=== PATIENT | female | born 1945 | race Caucasian/White ===

== ENCOUNTER 2022-08-20 05:04 | Inpatient (IN) | payer MEDICARE ==
[2022-08-20] MEDS ORDERED: Ketorolac Tromethamine 30 MG/ML VIAL ONE (05:14)
[2022-08-20] MEDS ORDERED: Morphine 4 MG/ML VIAL ONE (05:14)
[2022-08-20] MEDS ORDERED: Ondansetron PF 4 MG/2 ML Vial ONE (05:21)
[2022-08-20 05:46] LABS: #Eosinphils 0.1 thou/uL (0.0-0.7); #Lymphocytes 1.8 thou/uL (1.20-3.40); #Monocytes 1.5 thou/uL (0.11-0.59); #Neutrophils 10.5 thou/uL (1.40-6.50); %Basophils 0.2 % (0.0-1.0); %Eosinophils 0.8 % (0.0-10.0); %Lymphocytes 12.7 % (21.0-51.0); %Monocytes 10.8 % (0.0-10.0); %Neutrophils 75.5 % (42.0-75.0); Hemoglobin 7.9 g/dL (12.0-16.0); Mean Corpuscular HGB CONC 32.5 g/dL (32.0-36.0); Mean Corpuscular Hemoglobin 27.4 pg (27.0-31.0); Mean Corpuscular Volume 84.3 fl (78.0-98.0); Mean Platelet Volume 6.5 fL (7.4-10.4); Platelet Count 283 10x3/uL (130-400); RBC Distribution Width 15.2 % (11.5-14.5); Red Blood Cell (RBC) Count 2.87 mill/uL (4.20-5.40); White Blood Cell (WBC) Count 13.9 10x3/uL (4.8-10.8)
[2022-08-20 06:08] LABS: ALT (SGPT) 12 U/L (8-55); AST (SGOT) 19 U/L (5-34); Albumin 3.7 g/dL (3.4-4.8); Alkaline Phosphatase 54 U/L (40-110); Anion Gap 16 mmol/L (10-20); BUN (Urea Nitrogen) 15 mg/dL (9.8-20.1); Bilirubin, Total 0.5 mg/dL (0.2-1.2); Calc. Creatinine Clearance 0 mL/min (70-130); Calcium 8.4 mg/dL (7.8-10.44); Carbon Dioxide 17 mmol/L (23-31); Chloride 97 mmol/L (98-107); Estimated GFR 62; Globulin 2.7 g/dL (2.4-3.5); Glucose 146 mg/dL (83-110); Potassium 3.6 mmol/L (3.5-5.1); Protein, Total 6.4 g/dL (5.8-8.1); Sodium 126 mmol/L (136-145)
[2022-08-20 06:25] LABS: Bilirubin Negative (Negative); Blood, Urine Negative (Negative); Clarity Clear (Clear); Glucose, Urine (Dipstick) Normal (Negative); Ketone, Urine Negative (Negative); Leukocyte Negative Leu/uL (Negative); Nitrite Negative (Negative); Protein, Urine (Dipstick) Negative (Neg-Trace); Specific Gravity, Urine 1.018 (1.002-1.036); Urobilinogen Normal mg/dL (Less than 2); pH, Urine 5.5 (5.0-9.0)
[2022-08-20] MEDS ORDERED: Acetaminophen 500 MG TAB ONE (07:50)
[2022-08-20 09:44] LABS: SARS-CoV-2 NAA Rapid Test DETECTED (NotDetected)
[2022-08-20] MEDS ORDERED: HumaLOG 300 UNITS/3 ML VIAL SC PRN ×2 (10:33)
[2022-08-20] MEDS ORDERED: Ondansetron ODT 4 MG TAB PO PRN (10:33)
[2022-08-20] MEDS ORDERED: Dextrose 50% Abboject 50 ML SYRINGE SLOW IVP PRN (10:33)
[2022-08-20] MEDS ORDERED: Senokot S 8.6-50 MG TAB PO PRN (10:33)
[2022-08-20] MEDS ORDERED: Bisacodyl 10 MG SUPP PR PRN (10:33)
[2022-08-20] MEDS ORDERED: Bisacodyl 5 MG TAB PO PRN (10:33)
[2022-08-20] MEDS ORDERED: Dextrose 5% in Water 1,000 ML IV PRN (10:33)
[2022-08-20] MEDS ORDERED: Electrolyte Replacement Protocol 1 EACH FS SCH (10:45)
[2022-08-20] MEDS ORDERED: Folic Acid 1 MG TAB PO SCH (11:00)
[2022-08-20] MEDS ORDERED: Multivit, Therapeutic 1 TAB PO SCH (11:00)
[2022-08-20 11:17] LABS: Hemoglobin A1c 6.6 % (4.0-6.0)
[2022-08-20 11:18] LABS: Sodium 127 mmol/L (136-145)
[2022-08-20 11:30] LABS: Iron Binding Capacity, Total 309 mcg/dL (265-497)
[2022-08-20 11:31] LABS: Iron 37 ug/dL (50-170)
[2022-08-20 11:35] LABS: Troponin I Less than 0.010 ng/mL (< 0.028)
[2022-08-20] MEDS: Thiamine HCl 200 MG/2 ML VIAL SLOW IVP SCH ×2 (13:01→17:54)
[2022-08-20 13:30] LABS: Syphilis Antibody Nonreactive (Nonreactive); Syphilis Antibody Index 0.02 S/CO (<1.00 Non-Reactive)
[2022-08-20 13:41] VITALS: BMI 33.3
[2022-08-20] MEDS: Acetaminophen 325 MG TAB PO SCH ×2 (15:58→21:07)
[2022-08-20 17:54] LABS: Sodium 127 mmol/L (136-145)
[2022-08-20 18:33] LABS: Amphetamine Not Detected (NotDetected); Barbiturates Screen Not Detected (NotDetected); Benzodiazepine Screen Not Detected (NotDetected); Cocaine Metabolite Screen Not Detected (NotDetected); Methadone Not Detected (NotDetected); Methamphetamine Not Detected (NotDetected); Opiate Screen Detected (NotDetected); Oxycodone Screen Not Detected (NotDetected); Phencyclidine (PCP) Not Detected (NotDetected); THC/Cannabinoid Screen Not Detected (NotDetected); Tricyclic Screen Not Detected (NotDetected)
[2022-08-20] MEDS: Famotidine 20 MG TAB PO SCH (21:04)
[2022-08-20] MEDS: HYDROcodone/Acetaminophen 7.5/325 mg Tablet PO PRN (21:06)
[2022-08-20] MEDS: Acetaminophen 500 MG TAB PO SCH (21:29)
[2022-08-20 23:41] LABS: Sodium 128 mmol/L (136-145)
[2022-08-21] MEDS: Thiamine HCl 200 MG/2 ML VIAL SLOW IVP SCH ×3 (03:32→18:47)
[2022-08-21 05:18] LABS: Anion Gap 12 mmol/L (10-20); BUN (Urea Nitrogen) 20 mg/dL (9.8-20.1); Calc. Creatinine Clearance 71 mL/min (70-130); Calcium 8.4 mg/dL (7.8-10.44); Carbon Dioxide 23 mmol/L (23-31); Chloride 101 mmol/L (98-107); Estimated GFR 57; Glucose 106 mg/dL (83-110); Potassium 3.8 mmol/L (3.5-5.1); Sodium 132 mmol/L (136-145)
[2022-08-21 05:23] LABS: #Eosinphils 0.1 thou/uL (0.0-0.7); #Lymphocytes 1.5 thou/uL (1.20-3.40); #Monocytes 0.8 thou/uL (0.11-0.59); #Neutrophils 3.7 thou/uL (1.40-6.50); %Basophils 0.1 % (0.0-1.0); %Lymphocytes 23.9 % (21.0-51.0); %Monocytes 13.4 % (0.0-10.0); %Neutrophils 60.6 % (42.0-75.0); Hemoglobin 6.2 g/dL (12.0-16.0); Mean Corpuscular HGB CONC 34.3 g/dL (32.0-36.0); Mean Corpuscular Hemoglobin 28.7 pg (27.0-31.0); Mean Corpuscular Volume 83.5 fl (78.0-98.0); Mean Platelet Volume 7.5 fL (7.4-10.4); Platelet Count 165 10x3/uL (130-400); RBC Distribution Width 15.3 % (11.5-14.5); Red Blood Cell (RBC) Count 2.17 mill/uL (4.20-5.40); White Blood Cell (WBC) Count 6.1 10x3/uL (4.8-10.8)
[2022-08-21 06:38] LABS: Hemoglobin 6.4 g/dL (12.0-16.0)
[2022-08-21] MEDS ORDERED: Iopamidol-370 76% 500 ML 1 ML ONE (09:11)
[2022-08-21] MEDS: Acetaminophen 500 MG TAB PO SCH ×3 (09:44→21:48)
[2022-08-21] MEDS: Multivit, Therapeutic 1 TAB PO SCH (09:45)
[2022-08-21] MEDS: Folic Acid 1 MG TAB PO SCH (09:46)
[2022-08-21] MEDS: Famotidine 20 MG TAB PO SCH ×2 (09:46→21:47)
[2022-08-21 11:33] LABS: Glucose 124 mg/dL (83-110)
[2022-08-21] MEDS: Morphine 2 MG/ML VIAL SLOW IVP PRN ×3 (11:38→19:39)
[2022-08-21 16:30] LABS: Hemoglobin 8.1 g/dL (12.0-16.0)
[2022-08-21 16:58] LABS: Glucose 143 mg/dL (83-110)
[2022-08-21] MEDS: HYDROcodone/Acetaminophen 7.5/325 mg Tablet PO PRN (21:47)
[2022-08-22 00:18] LABS: Hemoglobin 7.7 g/dL (12.0-16.0)
[2022-08-22] MEDS: Thiamine HCl 200 MG/2 ML VIAL SLOW IVP SCH ×3 (03:19→21:58)
[2022-08-22] MEDS: Morphine 2 MG/ML VIAL SLOW IVP PRN ×4 (03:19→22:28)
[2022-08-22 05:14] LABS: Hemoglobin 8.6 g/dL (12.0-16.0); Mean Corpuscular HGB CONC 33.2 g/dL (32.0-36.0); Mean Corpuscular Hemoglobin 28.1 pg (27.0-31.0); Mean Corpuscular Volume 84.6 fl (78.0-98.0); Mean Platelet Volume 7.5 fL (7.4-10.4); Platelet Count 192 10x3/uL (130-400); RBC Distribution Width 15.6 % (11.5-14.5); Red Blood Cell (RBC) Count 3.05 mill/uL (4.20-5.40); White Blood Cell (WBC) Count 8.7 10x3/uL (4.8-10.8)
[2022-08-22 05:25] LABS: Anion Gap 14 mmol/L (10-20); BUN (Urea Nitrogen) 14 mg/dL (9.8-20.1); Calc. Creatinine Clearance 81 mL/min (70-130); Carbon Dioxide 22 mmol/L (23-31); Chloride 103 mmol/L (98-107); Estimated GFR 68; Glucose 114 mg/dL (83-110); Sodium 135 mmol/L (136-145)
[2022-08-22 05:48] LABS: Lymphocytes 14 % (21-51); MDiff Complete? YES; Monocytes 12 % (0-10); Neutrophil 74 % (42-75)
[2022-08-22] MEDS ORDERED: CEFAZOLIN 2 GM in Sodium Chloride 0.9% 100 ML IVPB SCH (07:30)
[2022-08-22] MEDS ORDERED: Sodium Chloride 0.9% 1,000 ML IV SCH (09:30)
[2022-08-22] MEDS: Acetaminophen 500 MG TAB PO SCH (09:53)
[2022-08-22] MEDS: Famotidine 20 MG TAB PO SCH ×3 (09:53→22:25)
[2022-08-22] MEDS: Folic Acid 1 MG TAB PO SCH (09:54)
[2022-08-22] MEDS: Multivit, Therapeutic 1 TAB PO SCH (09:55)
[2022-08-22] MEDS ORDERED: Acetaminophen/Codeine 30-300mg Tablet PO PRN (13:11)
[2022-08-22] MEDS ORDERED: HYDROcodone/Acetaminophen 5/325 mg Tablet PO PRN (13:13)
[2022-08-22 13:19] LABS: Glucose 148 mg/dL (83-110)
[2022-08-22] MEDS: Acetaminophen 325 MG TAB PO SCH ×3 (14:03→22:25)
[2022-08-22] MEDS ORDERED: Fentanyl 100 MCG/2 ML VIAL ONE ×2 (16:38→19:54)
[2022-08-22] MEDS ORDERED: fentaNYL PF 100 MCG/2 ML SYRINGE ONE ×2 (17:05→20:20)
[2022-08-22] MEDS ORDERED: Propofol 1,000 MG/100 ML VIAL IV ONE (17:05)
[2022-08-22] MEDS ORDERED: PHENYLEPHRINE-NS 100 MCG/ML 10 ML SYRINGE ONE (17:55)
[2022-08-22] MEDS ORDERED: Ondansetron PF 4 MG/2 ML Vial ONE ×3 (17:55→20:29)
[2022-08-22] MEDS ORDERED: Glycopyrrolate 0.2 MG/ML 5 ML SYRINGE ONE (17:55)
[2022-08-22] MEDS ORDERED: Rocuronium Bromide 10 MG/ML (10ML VIAL) ONE (17:55)
[2022-08-22] MEDS ORDERED: PROPOFOL 200 MG/20 ML VIAL ONE (17:55)
[2022-08-22] MEDS ORDERED: NEOSTIGMINE 3 MG/3 ML SYR 3 MG/3 ML SYRINGE ONE (17:55)
[2022-08-22] MEDS ORDERED: Lidocaine 1% PF 5 ML VIAL ONE (17:55)
[2022-08-22] MEDS ORDERED: Dexamethasone 20 MG/5 ML VIAL ONE (17:55)
[2022-08-22] MEDS: Ferrous Sulfate 325 MG TAB PO SCH (17:58)
[2022-08-22] MEDS ORDERED: Ondansetron HCl/PF 4 MG/2 ML Vial IVP PRN (19:54)
[2022-08-22] MEDS ORDERED: Promethazine HCl 25 MG/ML VIAL IM PRN (19:54)
[2022-08-22] MEDS: QUEtiapine 25 MG TAB PO SCH ×2 (21:59→22:24)
[2022-08-22] MEDS: Atorvastatin Calcium 40 MG TAB PO SCH ×2 (22:00→22:25)
[2022-08-22] MEDS: busPIRone HCl 10 MG TAB PO SCH ×2 (22:00→22:25)
[2022-08-22] MEDS: Senokot S 8.6-50 MG TAB PO SCH ×2 (22:00→22:24)
[2022-08-22] MEDS: Metoprolol Tartrate 25 MG TAB PO SCH ×2 (22:01→22:24)
[2022-08-22] MEDS: Gabapentin 300 MG CAP PO SCH ×2 (22:01→22:24)
[2022-08-22] MEDS: CEFAZOLIN 2 GM in Sodium Chloride 0.9% 100 ML IVPB SCH (22:02)
[2022-08-22] MEDS: Ascorbic Acid 500 mg Chewable Tablet PO SCH ×2 (22:02→22:23)
[2022-08-23] MEDS: Thiamine HCl 200 MG/2 ML VIAL SLOW IVP SCH ×2 (04:23→12:37)
[2022-08-23] MEDS: CEFAZOLIN 2 GM in Sodium Chloride 0.9% 100 ML IVPB SCH (05:58)
[2022-08-23 06:40] LABS: Anion Gap 14 mmol/L (10-20); BUN (Urea Nitrogen) 19 mg/dL (9.8-20.1); Calc. Creatinine Clearance 73 mL/min (70-130); Calcium 8.6 mg/dL (7.8-10.44); Carbon Dioxide 20 mmol/L (23-31); Chloride 106 mmol/L (98-107); Estimated GFR 60; Glucose 176 mg/dL (83-110); Magnesium 1.7 mg/dL (1.6-2.6); Potassium 4.5 mmol/L (3.5-5.1); Sodium 135 mmol/L (136-145)
[2022-08-23 06:43] LABS: Hemoglobin 7.3 g/dL (12.0-16.0); MDiff Complete? YES; Mean Corpuscular HGB CONC 32.4 g/dL (32.0-36.0); Mean Corpuscular Hemoglobin 28.3 pg (27.0-31.0); Mean Corpuscular Volume 87.4 fl (78.0-98.0); Mean Platelet Volume 7.3 fL (7.4-10.4); Platelet Count 207 10x3/uL (130-400); RBC Distribution Width 15.8 % (11.5-14.5); Red Blood Cell (RBC) Count 2.57 mill/uL (4.20-5.40); White Blood Cell (WBC) Count 11.2 10x3/uL (4.8-10.8)
[2022-08-23 06:44] LABS: Band 8 % (5-11); Hypochromia SLIGHT = 6-15 cells (100X) (0-5/hpf); Lymphocytes 13 % (21-51); Monocytes 14 % (0-10); Neutrophil 65 % (42-75); Platelet Morphology Comment Appears Adequate
[2022-08-23] MEDS ORDERED: Magnesium 2 GM/50 ML(in water) 2 GM in Premix Bag 1 BAG IVPB SCH (08:00)
[2022-08-23] MEDS: Ferrous Sulfate 325 MG TAB PO SCH ×3 (08:49→21:28)
[2022-08-23] MEDS: PARoxetine 20 MG TAB PO SCH (11:09)
[2022-08-23] MEDS: Ascorbic Acid 500 mg Chewable Tablet PO SCH ×2 (11:09→21:28)
[2022-08-23] MEDS: Amlodipine 10 MG TAB PO SCH (11:10)
[2022-08-23] MEDS: busPIRone HCl 10 MG TAB PO SCH ×2 (11:11→21:28)
[2022-08-23] MEDS: Senokot S 8.6-50 MG TAB PO SCH ×2 (11:12→21:27)
[2022-08-23] MEDS: Folic Acid 1 MG TAB PO SCH (11:12)
[2022-08-23] MEDS: Acetaminophen 325 MG TAB PO SCH ×3 (11:12→21:27)
[2022-08-23] MEDS: Metoprolol Tartrate 25 MG TAB PO SCH ×2 (11:12→21:28)
[2022-08-23] MEDS: HYDROcodone/Acetaminophen 7.5/325 mg Tablet PO PRN ×3 (11:13→21:28)
[2022-08-23] MEDS: Multivit, Therapeutic 1 TAB PO SCH (11:14)
[2022-08-23] MEDS: Polyethylene Glycol 3350 17 GM Packet PO SCH (11:14)
[2022-08-23] MEDS: Ibuprofen 200 MG TAB PO PRN (11:24)
[2022-08-23] MEDS: Gabapentin 300 MG CAP PO SCH ×2 (11:58→21:28)
[2022-08-23] MEDS: Atorvastatin Calcium 40 MG TAB PO SCH (21:27)
[2022-08-23] MEDS: Famotidine 20 MG TAB PO SCH (21:28)
[2022-08-23] MEDS: QUEtiapine 25 MG TAB PO SCH (21:28)
[2022-08-24 07:15] LABS: Glucose 154 mg/dL (83-110)
[2022-08-24 07:18] LABS: Anion Gap 13 mmol/L (10-20); BUN (Urea Nitrogen) 34 mg/dL (9.8-20.1); Calc. Creatinine Clearance 42 mL/min (70-130); Carbon Dioxide 21 mmol/L (23-31); Chloride 104 mmol/L (98-107); Estimated GFR 31; Glucose 155 mg/dL (83-110); Magnesium 2.6 mg/dL (1.6-2.6); Potassium 4.3 mmol/L (3.5-5.1); Sodium 134 mmol/L (136-145)
[2022-08-24 07:52] LABS: Hemoglobin 6.2 g/dL (12.0-16.0); Mean Corpuscular HGB CONC 32.6 g/dL (32.0-36.0); Mean Corpuscular Hemoglobin 28.5 pg (27.0-31.0); Mean Corpuscular Volume 87.3 fl (78.0-98.0); Mean Platelet Volume 7.9 fL (7.4-10.4); Platelet Count 235 10x3/uL (130-400); RBC Distribution Width 16.2 % (11.5-14.5); Red Blood Cell (RBC) Count 2.16 mill/uL (4.20-5.40); White Blood Cell (WBC) Count 9.6 10x3/uL (4.8-10.8)
[2022-08-24] MEDS: Ascorbic Acid 500 mg Chewable Tablet PO SCH ×2 (08:40→20:47)
[2022-08-24] MEDS: Famotidine 20 MG TAB PO SCH (08:40)
[2022-08-24] MEDS: Acetaminophen 325 MG TAB PO SCH ×3 (08:41→20:45)
[2022-08-24] MEDS: Multivit, Therapeutic 1 TAB PO SCH (08:41)
[2022-08-24] MEDS: Thiamine 100 MG TAB PO SCH (08:41)
[2022-08-24] MEDS: Gabapentin 300 MG CAP PO SCH ×2 (08:42→20:47)
[2022-08-24] MEDS: busPIRone HCl 10 MG TAB PO SCH ×2 (08:42→20:46)
[2022-08-24] MEDS: PARoxetine 20 MG TAB PO SCH (08:42)
[2022-08-24] MEDS: Ferrous Sulfate 325 MG TAB PO SCH ×2 (08:43→20:47)
[2022-08-24] MEDS: Folic Acid 1 MG TAB PO SCH (08:43)
[2022-08-24] MEDS: Metoprolol Tartrate 25 MG TAB PO SCH ×2 (08:43→20:47)
[2022-08-24] MEDS: Amlodipine 10 MG TAB PO SCH (08:43)
[2022-08-24] MEDS: Polyethylene Glycol 3350 17 GM Packet PO SCH (08:44)
[2022-08-24] MEDS: Senokot S 8.6-50 MG TAB PO SCH ×2 (08:44→20:47)
[2022-08-24 09:16] LABS: Anisocytosis SLIGHT = 6-15 cells (100X) (0-5/hpf); Eosinophils 2 % (0-10); Lymphocytes 14 % (21-51); MDiff Complete? YES; Monocytes 10 % (0-10); Neutrophil 74 % (42-75); Ovalocytes SLIGHT = 2-5 cells (100X) (0-1/hpf); Platelet Morphology Comment Appears Adequate; Polychromasia SLIGHT = 2-3 cells (100X) (0-2/hpf)
[2022-08-24] MEDS ORDERED: Iron Sucrose Complex 200 MG in Sodium Chloride 0.9% 100 ML IVPB SCH (12:30)
[2022-08-24] MEDS ORDERED: Iron, Sodium Ferric Gluconate 250 MG in Sodium Chloride 0.9% 250 ML 250 ML IVPB SCH ×2 (14:00→18:00)
[2022-08-24] MEDS: HYDROcodone/Acetaminophen 7.5/325 mg Tablet PO PRN ×2 (14:39→20:46)
[2022-08-24 17:31] LABS: Glucose 127 mg/dL (83-110)
[2022-08-24] MEDS: Sodium Chloride 0.9% 1,000 ML IV SCH (17:47)
[2022-08-24] MEDS: Atorvastatin Calcium 40 MG TAB PO SCH (20:47)
[2022-08-24] MEDS: QUEtiapine 25 MG TAB PO SCH (20:47)
[2022-08-24 22:58] LABS: Glucose 189 mg/dL (83-110)
[2022-08-25 08:08] LABS: #Eosinphils 0.2 thou/uL (0.0-0.7); #Lymphocytes 1.5 thou/uL (1.20-3.40); #Monocytes 1.4 thou/uL (0.11-0.59); #Neutrophils 6.7 thou/uL (1.40-6.50); %Basophils 0.5 % (0.0-1.0); %Eosinophils 2.4 % (0.0-10.0); %Lymphocytes 14.7 % (21.0-51.0); %Monocytes 14.3 % (0.0-10.0); %Neutrophils 68.2 % (42.0-75.0); Hemoglobin 7.2 g/dL (12.0-16.0); Mean Corpuscular HGB CONC 32.6 g/dL (32.0-36.0); Mean Corpuscular Hemoglobin 29.1 pg (27.0-31.0); Mean Corpuscular Volume 89.4 fl (78.0-98.0); Mean Platelet Volume 7.6 fL (7.4-10.4); Platelet Count 197 10x3/uL (130-400); RBC Distribution Width 16.4 % (11.5-14.5); Red Blood Cell (RBC) Count 2.46 mill/uL (4.20-5.40); White Blood Cell (WBC) Count 9.9 10x3/uL (4.8-10.8)
[2022-08-25 08:32] LABS: Anion Gap 14 mmol/L (10-20); BUN (Urea Nitrogen) 30 mg/dL (9.8-20.1); Calc. Creatinine Clearance 63 mL/min (70-130); Calcium 8.5 mg/dL (7.8-10.44); Carbon Dioxide 18 mmol/L (23-31); Chloride 105 mmol/L (98-107); Estimated GFR 50; Glucose 149 mg/dL (83-110); Magnesium 2.1 mg/dL (1.6-2.6); Potassium 4.2 mmol/L (3.5-5.1); Sodium 133 mmol/L (136-145)
[2022-08-25] MEDS: Gabapentin 300 MG CAP PO SCH ×2 (08:42→21:34)
[2022-08-25] MEDS: Senokot S 8.6-50 MG TAB PO SCH ×2 (08:42→21:37)
[2022-08-25] MEDS: Amlodipine 10 MG TAB PO SCH (08:43)
[2022-08-25] MEDS: Famotidine 20 MG TAB PO SCH (08:43)
[2022-08-25] MEDS: Metoprolol Tartrate 25 MG TAB PO SCH ×2 (08:43→21:35)
[2022-08-25] MEDS: Folic Acid 1 MG TAB PO SCH (08:43)
[2022-08-25] MEDS: Multivit, Therapeutic 1 TAB PO SCH (08:43)
[2022-08-25] MEDS: Ferrous Sulfate 325 MG TAB PO SCH ×2 (08:44→21:41)
[2022-08-25] MEDS: Acetaminophen 325 MG TAB PO SCH ×3 (08:44→21:36)
[2022-08-25] MEDS: busPIRone HCl 10 MG TAB PO SCH ×2 (08:44→21:34)
[2022-08-25] MEDS: Thiamine 100 MG TAB PO SCH (08:44)
[2022-08-25] MEDS: PARoxetine 20 MG TAB PO SCH (08:44)
[2022-08-25] MEDS: Polyethylene Glycol 3350 17 GM Packet PO SCH (08:45)
[2022-08-25] MEDS: Ascorbic Acid 500 mg Chewable Tablet PO SCH ×2 (08:45→21:33)
[2022-08-25] MEDS: Sodium Chloride 0.9% 1,000 ML IV SCH ×2 (08:46→11:23)
[2022-08-25] MEDS: HYDROcodone/Acetaminophen 7.5/325 mg Tablet PO PRN ×2 (09:42→14:46)
[2022-08-25] MEDS ORDERED: Cyclobenzaprine 10 MG TAB PO SCH (10:45)
[2022-08-25] MEDS: Cyclobenzaprine 10 MG TAB PO PRN (12:04)
[2022-08-25] MEDS: Ibuprofen 200 MG TAB PO PRN (12:04)
[2022-08-25] MEDS: QUEtiapine 25 MG TAB PO SCH (21:35)
[2022-08-25] MEDS: Atorvastatin Calcium 40 MG TAB PO SCH (21:36)
[2022-08-26] MEDS: HYDROcodone/Acetaminophen 7.5/325 mg Tablet PO PRN ×3 (05:18→21:39)
[2022-08-26] MEDS: Sodium Chloride 0.9% 1,000 ML IV SCH (05:19)
[2022-08-26 08:10] LABS: #Eosinphils 0.3 thou/uL (0.0-0.7); #Lymphocytes 1.2 thou/uL (1.20-3.40); #Monocytes 0.9 thou/uL (0.11-0.59); #Neutrophils 5.3 thou/uL (1.40-6.50); %Basophils 0.4 % (0.0-1.0); %Eosinophils 3.8 % (0.0-10.0); %Lymphocytes 16.1 % (21.0-51.0); %Monocytes 11.6 % (0.0-10.0); %Neutrophils 68.2 % (42.0-75.0); Hemoglobin 6.9 g/dL (12.0-16.0); Mean Corpuscular HGB CONC 31.7 g/dL (32.0-36.0); Mean Corpuscular Hemoglobin 28.8 pg (27.0-31.0); Platelet Count 245 10x3/uL (130-400); RBC Distribution Width 16.6 % (11.5-14.5); Red Blood Cell (RBC) Count 2.38 mill/uL (4.20-5.40); White Blood Cell (WBC) Count 7.7 10x3/uL (4.8-10.8)
[2022-08-26 08:28] LABS: Glucose 123 mg/dL (83-110)
[2022-08-26 08:41] LABS: Anion Gap 12 mmol/L (10-20); BUN (Urea Nitrogen) 17 mg/dL (9.8-20.1); Calc. Creatinine Clearance 91 mL/min (70-130); Calcium 8.3 mg/dL (7.8-10.44); Carbon Dioxide 22 mmol/L (23-31); Chloride 109 mmol/L (98-107); Estimated GFR 78; Glucose 120 mg/dL (83-110); Magnesium 2.3 mg/dL (1.6-2.6); Potassium 3.8 mmol/L (3.5-5.1); Sodium 139 mmol/L (136-145)
[2022-08-26] MEDS: Cyclobenzaprine 10 MG TAB PO PRN (09:26)
[2022-08-26] MEDS: Famotidine 20 MG TAB PO SCH ×3 (09:28→21:44)
[2022-08-26] MEDS: Multivit, Therapeutic 1 TAB PO SCH (09:28)
[2022-08-26] MEDS: Gabapentin 300 MG CAP PO SCH ×2 (09:29→21:44)
[2022-08-26] MEDS: Amlodipine 10 MG TAB PO SCH (09:29)
[2022-08-26] MEDS: Folic Acid 1 MG TAB PO SCH (09:30)
[2022-08-26] MEDS: Ascorbic Acid 500 mg Chewable Tablet PO SCH ×2 (09:30→21:46)
[2022-08-26] MEDS: busPIRone HCl 10 MG TAB PO SCH ×2 (09:30→21:40)
[2022-08-26] MEDS: PARoxetine 20 MG TAB PO SCH (09:31)
[2022-08-26] MEDS: Thiamine 100 MG TAB PO SCH (09:31)
[2022-08-26] MEDS: Metoprolol Tartrate 25 MG TAB PO SCH ×2 (09:32→21:39)
[2022-08-26] MEDS: Ferrous Sulfate 325 MG TAB PO SCH ×2 (09:32→21:45)
[2022-08-26] MEDS: Acetaminophen 325 MG TAB PO SCH ×3 (09:33→21:39)
[2022-08-26] MEDS: Polyethylene Glycol 3350 17 GM Packet PO SCH (09:33)
[2022-08-26] MEDS: Senokot S 8.6-50 MG TAB PO SCH ×2 (09:34→21:48)
[2022-08-26] MEDS ORDERED: Thiamine 100 MG TAB PO SCH (10:00)
[2022-08-26 11:52] LABS: Glucose 126 mg/dL (83-110)
[2022-08-26 17:21] LABS: Glucose 117 mg/dL (83-110)
[2022-08-26 21:38] LABS: Glucose 142 mg/dL (83-110)
[2022-08-26] MEDS: QUEtiapine 25 MG TAB PO SCH (21:43)
[2022-08-26] MEDS: Atorvastatin Calcium 40 MG TAB PO SCH (21:45)
[2022-08-27] MEDS: Sodium Chloride 0.9% 1,000 ML IV SCH ×2 (04:03→17:09)
[2022-08-27] MEDS: HYDROcodone/Acetaminophen 7.5/325 mg Tablet PO PRN ×2 (10:26→20:03)
[2022-08-27 10:35] LABS: #Eosinphils 0.3 thou/uL (0.0-0.7); #Lymphocytes 1.3 thou/uL (1.20-3.40); #Neutrophils 7.2 thou/uL (1.40-6.50); %Basophils 0.3 % (0.0-1.0); %Eosinophils 2.8 % (0.0-10.0); %Lymphocytes 13.3 % (21.0-51.0); %Monocytes 10.5 % (0.0-10.0); %Neutrophils 73.2 % (42.0-75.0); Hemoglobin 9.1 g/dL (12.0-16.0); Mean Corpuscular HGB CONC 32.5 g/dL (32.0-36.0); Mean Corpuscular Hemoglobin 28.9 pg (27.0-31.0); Mean Corpuscular Volume 88.9 fl (78.0-98.0); Platelet Count 287 10x3/uL (130-400); RBC Distribution Width 15.9 % (11.5-14.5); Red Blood Cell (RBC) Count 3.14 mill/uL (4.20-5.40); White Blood Cell (WBC) Count 9.9 10x3/uL (4.8-10.8)
[2022-08-27] MEDS: PARoxetine 20 MG TAB PO SCH (10:39)
[2022-08-27] MEDS: busPIRone HCl 10 MG TAB PO SCH ×2 (10:39→20:02)
[2022-08-27] MEDS: Famotidine 20 MG TAB PO SCH ×2 (10:44→20:03)
[2022-08-27] MEDS: Acetaminophen 325 MG TAB PO SCH ×3 (10:44→20:02)
[2022-08-27] MEDS: Amlodipine 10 MG TAB PO SCH (10:44)
[2022-08-27] MEDS: Ascorbic Acid 500 mg Chewable Tablet PO SCH ×2 (10:44→20:04)
[2022-08-27 10:45] LABS: Glucose 129 mg/dL (83-110)
[2022-08-27] MEDS: Folic Acid 1 MG TAB PO SCH (10:45)
[2022-08-27] MEDS: Metoprolol Tartrate 25 MG TAB PO SCH ×2 (10:46→20:04)
[2022-08-27] MEDS: Multivit, Therapeutic 1 TAB PO SCH (10:46)
[2022-08-27] MEDS: Polyethylene Glycol 3350 17 GM Packet PO SCH (10:47)
[2022-08-27] MEDS: Senokot S 8.6-50 MG TAB PO SCH ×2 (10:49→20:04)
[2022-08-27] MEDS: Gabapentin 300 MG CAP PO SCH ×2 (10:50→20:03)
[2022-08-27 10:54] LABS: Anion Gap 15 mmol/L (10-20); BUN (Urea Nitrogen) 12 mg/dL (9.8-20.1); Calc. Creatinine Clearance 99 mL/min (70-130); Calcium 9.1 mg/dL (7.8-10.44); Carbon Dioxide 22 mmol/L (23-31); Chloride 104 mmol/L (98-107); Estimated GFR 86; Glucose 131 mg/dL (83-110); Magnesium 1.5 mg/dL (1.6-2.6); Potassium 3.7 mmol/L (3.5-5.1); Sodium 137 mmol/L (136-145)
[2022-08-27] MEDS ORDERED: Magnesium 2 GM/50 ML(in water) 2 GM in Premix Bag 1 BAG IVPB SCH (11:00)
[2022-08-27] MEDS: Thiamine 100 MG TAB PO SCH (11:01)
[2022-08-27] MEDS: Ferrous Sulfate 325 MG TAB PO SCH ×2 (12:36→20:02)
[2022-08-27] MEDS ORDERED: Haloperidol Lactate 5 MG/ML VIAL IM SCH (17:00)
[2022-08-27] MEDS: Atorvastatin Calcium 40 MG TAB PO SCH (20:03)
[2022-08-27] MEDS: QUEtiapine 25 MG TAB PO SCH (20:03)
[2022-08-28 08:28] LABS: Anion Gap 14 mmol/L (10-20); BUN (Urea Nitrogen) 11 mg/dL (9.8-20.1); Calc. Creatinine Clearance 100 mL/min (70-130); Calcium 8.8 mg/dL (7.8-10.44); Carbon Dioxide 24 mmol/L (23-31); Chloride 105 mmol/L (98-107); Estimated GFR 87; Glucose 127 mg/dL (83-110); Magnesium 1.6 mg/dL (1.6-2.6); Potassium 3.9 mmol/L (3.5-5.1); Sodium 139 mmol/L (136-145)
[2022-08-28 08:48] LABS: #Eosinphils 0.3 thou/uL (0.0-0.7); #Lymphocytes 1.3 thou/uL (1.20-3.40); #Monocytes 0.9 thou/uL (0.11-0.59); #Neutrophils 4.7 thou/uL (1.40-6.50); %Basophils 0.1 % (0.0-1.0); %Eosinophils 3.8 % (0.0-10.0); %Lymphocytes 17.9 % (21.0-51.0); %Monocytes 12.5 % (0.0-10.0); %Neutrophils 65.6 % (42.0-75.0); Hemoglobin 8.8 g/dL (12.0-16.0); Mean Corpuscular HGB CONC 33.2 g/dL (32.0-36.0); Mean Corpuscular Hemoglobin 29.5 pg (27.0-31.0); Platelet Count 266 10x3/uL (130-400); RBC Distribution Width 16.6 % (11.5-14.5); Red Blood Cell (RBC) Count 2.97 mill/uL (4.20-5.40); White Blood Cell (WBC) Count 7.2 10x3/uL (4.8-10.8)
[2022-08-28] MEDS: Thiamine 100 MG TAB PO SCH (09:59)
[2022-08-28] MEDS: Folic Acid 1 MG TAB PO SCH (09:59)
[2022-08-28] MEDS: busPIRone HCl 10 MG TAB PO SCH (09:59)
[2022-08-28] MEDS: Ferrous Sulfate 325 MG TAB PO SCH (09:59)
[2022-08-28] MEDS ORDERED: Magnesium 2 GM/50 ML(in water) 2 GM in Premix Bag 1 BAG IVPB SCH (10:00)
[2022-08-28] MEDS: Acetaminophen 325 MG TAB PO SCH (10:01)
[2022-08-28] MEDS: Ascorbic Acid 500 mg Chewable Tablet PO SCH (10:02)
[2022-08-28] MEDS: Amlodipine 10 MG TAB PO SCH (10:02)
[2022-08-28] MEDS: Famotidine 20 MG TAB PO SCH (10:03)
[2022-08-28] MEDS: Gabapentin 300 MG CAP PO SCH (10:03)
[2022-08-28] MEDS: Metoprolol Tartrate 25 MG TAB PO SCH (10:03)
[2022-08-28] MEDS: HYDROcodone/Acetaminophen 7.5/325 mg Tablet PO PRN (10:03)
[2022-08-28] MEDS: Senokot S 8.6-50 MG TAB PO SCH (10:04)
[2022-08-28] MEDS: PARoxetine 20 MG TAB PO SCH (10:04)
[2022-08-28] MEDS: Multivit, Therapeutic 1 TAB PO SCH (10:04)
[2022-08-28] MEDS: Polyethylene Glycol 3350 17 GM Packet PO SCH (10:04)
[2022-08-28 11:31] LABS: Glucose 174 mg/dL (83-110)
[2022-08-28 11:43] VITALS: BP 144/79; TEMP 98.1
== END 2022-08-28 11:45 | disposition home or self-care (01) | DRG 480 ==
LOC: ERS 05:04 → ERHOLD 06:51 → 2NO 13:14 → SURG A 08-22 20:50
PROVIDERS: ADMIT Internal Medicine; ATTEND Internal Medicine
PROC: 30233N1 Transfusion of Nonautologous Red Blood Cells into Peripheral Vein, Percutaneous Approach (ICD-10-PCS; 2022-08-21)
PROC: 0QSB04Z Reposition Right Lower Femur with Internal Fixation Device, Open Approach (ICD-10-PCS; principal; 2022-08-22)
DX: S72.491A Other fracture of lower end of right femur, initial encounter for closed fracture (principal); G93.41 Metabolic encephalopathy; U07.1 COVID-19; E87.1 Hypo-osmolality and hyponatremia; M97.01XA Periprosthetic fracture around internal prosthetic right hip joint, initial encounter; D62 Acute posthemorrhagic anemia; N17.9 Acute kidney failure, unspecified; I25.10 Atherosclerotic heart disease of native coronary artery without angina pectoris; F31.9 Bipolar disorder, unspecified; E11.9 Type 2 diabetes mellitus without complications; F41.9 Anxiety disorder, unspecified; E78.00 Pure hypercholesterolemia, unspecified; F10.10 Alcohol abuse, uncomplicated; W18.30XA Fall on same level, unspecified, initial encounter; Z96.653 Presence of artificial knee joint, bilateral; Z96.643 Presence of artificial hip joint, bilateral; E66.9 Obesity, unspecified; Z68.33 Body mass index [BMI] 33.0-33.9, adult; Z88.8 Allergy status to other drugs, medicaments and biological substances; Z98.51 Tubal ligation status; Z95.0 Presence of cardiac pacemaker; Z90.710 Acquired absence of both cervix and uterus; I25.2 Old myocardial infarction; Z79.84 Long term (current) use of oral hypoglycemic drugs; Z79.899 Other long term (current) drug therapy
CPT/HCPCS: 36415; 36416; 36430; 70450; 71045; 72125; 72128; 72131; 72170; 76705; 76770; 80048; 80053; 80306; 81003; 82140; 82274; 82550; 82728; 82947; 83036; 83540; 83550; 83735; 83930; 83935; 84300; 84443; 84484; 85025; 86780; 86850; 86900; 86901; 87086; 93005; 93306; 96374; 96375; C1713; C1776; J1100; J1630; J1815; J1885; J2270; J2272; J2405; J2704; J2916; J3010; J3411; J3475; J3490; J7050; P9016; Q0162; Q9967; U0002

== ENCOUNTER 2022-12-19 10:51 | Observation (INO) | payer MEDICARE ==
[2022-12-19 11:23] LABS: #Eosinphils 0.1 thou/uL (0.0-0.7); #Monocytes 0.6 thou/uL (0.11-0.59); #Neutrophils 4.3 thou/uL (1.40-6.50); %Basophils 0.3 % (0.0-1.0); %Lymphocytes 15.1 % (21.0-51.0); %Neutrophils 73.3 % (42.0-75.0); Hemoglobin 11.7 g/dL (12.0-16.0); Mean Corpuscular HGB CONC 34.2 g/dL (32.0-36.0); Mean Corpuscular Hemoglobin 32.3 pg (27.0-31.0); Mean Corpuscular Volume 94.5 fl (78.0-98.0); Mean Platelet Volume 9.1 fL (7.4-10.4); Platelet Count 219 10x3/uL (130-400); RBC Distribution Width 13.7 % (11.5-14.5); Red Blood Cell (RBC) Count 3.62 mill/uL (4.20-5.40); White Blood Cell (WBC) Count 5.9 10x3/uL (4.8-10.8)
[2022-12-19 11:48] LABS: ALT (SGPT) 10 U/L (8-55); AST (SGOT) 14 U/L (5-34); Albumin 3.8 g/dL (3.4-4.8); Alkaline Phosphatase 76 U/L (40-110); Anion Gap 16 mmol/L (10-20); BUN (Urea Nitrogen) 8 mg/dL (9.8-20.1); Bilirubin, Total 0.7 mg/dL (0.2-1.2); Calc. Creatinine Clearance 0 mL/min (70-130); Carbon Dioxide 22 mmol/L (23-31); Chloride 104 mmol/L (98-107); Estimated GFR 77; Globulin 2.6 g/dL (2.4-3.5); Glucose 173 mg/dL (83-110); Lipase 17 U/L (8-78); Potassium 3.7 mmol/L (3.5-5.1); Protein, Total 6.4 g/dL (5.8-8.1); Sodium 138 mmol/L (136-145)
[2022-12-19] MEDS ORDERED: Iopamidol-370 76% 500 ML MDV (1 ML CHARGE) ONE (13:27)
[2022-12-19] MEDS ORDERED: Morphine 4 MG/ML VIAL ONE (13:29)
[2022-12-19] MEDS ORDERED: Ondansetron PF 4 MG/2 ML Vial ONE (13:29)
[2022-12-19] MEDS ORDERED: diphenhydrAMINE 50 MG/ML VIAL ONE (13:49)
[2022-12-19] MEDS ORDERED: predniSONE 20 MG TAB ONE (14:06)
[2022-12-19] MEDS ORDERED: Famotidine/PF 20 mg/2ml Vial ONE (14:06)
[2022-12-19] MEDS ORDERED: Senokot S 8.6-50 MG TAB PO PRN (14:44)
[2022-12-19] MEDS ORDERED: Insulin Regular 300 UNITS/3 ML VIAL SC PRN ×2 (15:29)
[2022-12-19] MEDS ORDERED: Dextrose 50% Abboject 50 ML SYRINGE SLOW IVP PRN (15:29)
[2022-12-19] MEDS ORDERED: Dextrose 5% in Water 1,000 ML IV PRN (15:29)
[2022-12-19] MEDS ORDERED: Glucagon 1 MG/ML KIT IM PRN (15:29)
[2022-12-19 15:53] LABS: Troponin I Less than 0.010 ng/mL (< 0.028)
[2022-12-19 16:36] LABS: Free T4 (Free Thyroxine) 1.28 ng/dL (0.70-1.48)
[2022-12-19 16:44] LABS: Troponin I Less than 0.010 ng/mL (< 0.028)
[2022-12-19 20:46] VITALS: BMI 29.0
[2022-12-19] MEDS ORDERED: Latanoprost 0.005% Ophth Soln 2.5 ml Bottle EA EYE SCH (21:00)
[2022-12-19] MEDS ORDERED: Atorvastatin Calcium 40 MG TAB PO SCH (21:00)
[2022-12-19] MEDS: HYDROcodone/Acetaminophen 5/325 mg Tablet PO SCH (22:37)
[2022-12-19] MEDS: busPIRone HCl 10 MG TAB PO SCH (22:38)
[2022-12-19] MEDS: Metoprolol Tartrate 25 MG TAB PO SCH (22:38)
[2022-12-19] MEDS: Pantoprazole 40 MG VIAL IVP SCH (22:39)
[2022-12-19 23:29] LABS: Bacteria/HPF 3+ HPF (None Seen); Bilirubin Negative (Negative); Blood, Urine Negative (Negative); Clarity Turbid (Clear); Glucose, Urine (Dipstick) 500 mg/dL (Negative); Ketone, Urine Negative (Negative); Leukocyte Negative Leu/uL (Negative); Nitrite Negative (Negative); Protein, Urine (Dipstick) 70 mg/dL (Neg-Trace); RBC/HPF 0-3 HPF (0-3); Specific Gravity, Urine 1.029 (1.002-1.036); Squamous Epithelial None Seen HPF (0-3); WBC/HPF 0-3 HPF (0-3)
[2022-12-20] MEDS: hydrALAZINE 20 MG/ML VIAL SLOW IVP PRN ×2 (01:12→08:34)
[2022-12-20 05:33] LABS: #Monocytes 0.6 thou/uL (0.11-0.59); #Neutrophils 6.6 thou/uL (1.40-6.50); %Basophils 0.1 % (0.0-1.0); %Lymphocytes 11.2 % (21.0-51.0); %Monocytes 7.6 % (0.0-10.0); %Neutrophils 80.9 % (42.0-75.0); Hemoglobin 12.1 g/dL (12.0-16.0); Mean Corpuscular HGB CONC 33.9 g/dL (32.0-36.0); Mean Corpuscular Hemoglobin 32.4 pg (27.0-31.0); Mean Corpuscular Volume 95.5 fl (78.0-98.0); Mean Platelet Volume 9.2 fL (7.4-10.4); Platelet Count 240 10x3/uL (130-400); RBC Distribution Width 13.9 % (11.5-14.5); Red Blood Cell (RBC) Count 3.74 mill/uL (4.20-5.40); White Blood Cell (WBC) Count 8.2 10x3/uL (4.8-10.8)
[2022-12-20 05:57] LABS: ALT (SGPT) 8 U/L (8-55); AST (SGOT) 13 U/L (5-34); Albumin 3.8 g/dL (3.4-4.8); Alkaline Phosphatase 74 U/L (40-110); Anion Gap 13 mmol/L (10-20); BUN (Urea Nitrogen) 9 mg/dL (9.8-20.1); Bilirubin, Total 0.5 mg/dL (0.2-1.2); Calc. Creatinine Clearance 81 mL/min (70-130); Calcium 9.6 mg/dL (7.8-10.44); Carbon Dioxide 26 mmol/L (23-31); Chloride 100 mmol/L (98-107); Estimated GFR 75; Globulin 2.8 g/dL (2.4-3.5); Glucose 155 mg/dL (83-110); Protein, Total 6.6 g/dL (5.8-8.1); Sodium 135 mmol/L (136-145)
[2022-12-20] MEDS ORDERED: Nitroglycerin 0.4 MG TAB (25 Tab Bottle) SL PRN (07:58)
[2022-12-20 08:14] LABS: Magnesium 1.6 mg/dL (1.6-2.6); Phosphorus 2.9 mg/dL (2.3-4.7)
[2022-12-20] MEDS: HYDROcodone/Acetaminophen 5/325 mg Tablet PO SCH (08:33)
[2022-12-20] MEDS: busPIRone HCl 10 MG TAB PO SCH (08:33)
[2022-12-20] MEDS: Pantoprazole 40 MG VIAL IVP SCH (08:36)
[2022-12-20] MEDS ORDERED: PARoxetine 20 MG TAB PO SCH (09:00)
[2022-12-20] MEDS: Metoprolol Tartrate 25 MG TAB PO SCH (09:00)
[2022-12-20] MEDS ORDERED: Thiamine 100 MG TAB PO SCH (09:00)
[2022-12-20] MEDS ORDERED: pyridOXINE 50 MG (B6) TAB PO SCH (09:00)
[2022-12-20] MEDS ORDERED: Amlodipine 5 MG TAB PO SCH (09:00)
[2022-12-20] MEDS ORDERED: Aspirin Chewable 81 MG TAB PO SCH (09:00)
[2022-12-20] MEDS ORDERED: cefTRIAXone\\ROCEPHIN 1 GM in Sodium Chloride 0.9% 100 ML IVPB SCH (10:00)
[2022-12-20] MEDS ORDERED: Regadenoson 0.4 MG/5 ML SYRINGE ONE (10:56)
[2022-12-20 16:32] VITALS: TEMP 97.9
[2022-12-20 19:53] VITALS: BP 129/60
== END 2022-12-20 18:40 | disposition home or self-care (01) ==
LOC: ERS 10:51 → ERHOLD 14:42 → 2SW 20:34
PROVIDERS: ADMIT Internal Medicine; ATTEND Internal Medicine
DX: R07.9 Chest pain, unspecified (principal); R53.1 Weakness; E11.9 Type 2 diabetes mellitus without complications; I11.0 Hypertensive heart disease with heart failure; I50.30 Unspecified diastolic (congestive) heart failure; I25.10 Atherosclerotic heart disease of native coronary artery without angina pectoris; M54.50 Low back pain, unspecified; G89.29 Other chronic pain; F32.A Depression, unspecified; Z79.82 Long term (current) use of aspirin; Z79.84 Long term (current) use of oral hypoglycemic drugs; Z79.899 Other long term (current) drug therapy
CPT/HCPCS: 71045; 71275; 72131; 74174; 74176; 78452; 80053; 81001; 82533; 83690; 83735; 83880; 84100; 84439; 84484 ×2; 85025; 87040; 87077; 87086; 87186; 93005; 93017; 93970; 96374; 96375 ×3; 96376; 97116; 99285; A9500; G0378 ×3; J0360; 36415; 84443; C9113; J0696; J1200; J2270; J2405; J2785; J3490; J7512; Q9967; S0028

== ENCOUNTER 2023-01-31 19:58 | Emergency (ER) | payer MEDICARE ==
[2023-01-31] MEDS ORDERED: Morphine 4 MG/ML VIAL ONE ×2 (21:18→22:14)
[2023-01-31] MEDS ORDERED: Cyclobenzaprine 10 MG TAB ONE (21:18)
[2023-01-31] MEDS ORDERED: Lidocaine 4% Patch TD SCH (23:30)
[2023-02-01] MEDS ORDERED: Transdermal Patch Removal TOP SCH (12:00)
== END 2023-02-01 03:42 ==
LOC: ERS 19:58
DX: M54.50 Low back pain, unspecified (principal); G89.29 Other chronic pain; E78.00 Pure hypercholesterolemia, unspecified; E11.9 Type 2 diabetes mellitus without complications; Z79.82 Long term (current) use of aspirin; Z79.84 Long term (current) use of oral hypoglycemic drugs
CPT/HCPCS: 72100; 96372; J2270

== ENCOUNTER 2023-02-13 18:31 | Inpatient (IN) | payer MEDICARE ==
[~2023-02-13 18:31] MED LIST: Iopamidol-370 76% 500 ML MDV (1 ML CHARGE) ONE
[2023-02-13 19:51] LABS: #Eosinphils 0.1 thou/uL (0.0-0.7); #Monocytes 0.9 thou/uL (0.11-0.59); #Neutrophils 6.9 thou/uL (1.40-6.50); %Basophils 0.3 % (0.0-1.0); %Eosinophils 0.9 % (0.0-10.0); %Lymphocytes 15.7 % (21.0-51.0); %Monocytes 9.6 % (0.0-10.0); %Neutrophils 73.2 % (42.0-75.0); Hemoglobin 12.2 g/dL (12.0-16.0); Mean Corpuscular HGB CONC 35.9 g/dL (32.0-36.0); Mean Corpuscular Hemoglobin 32.9 pg (27.0-31.0); Mean Corpuscular Volume 91.6 fl (78.0-98.0); Mean Platelet Volume 9.3 fL (7.4-10.4); Platelet Count 202 10x3/uL (130-400); RBC Distribution Width 12.2 % (11.5-14.5); Red Blood Cell (RBC) Count 3.71 mill/uL (4.20-5.40); White Blood Cell (WBC) Count 9.4 10x3/uL (4.8-10.8)
[2023-02-13 20:17] LABS: ALT (SGPT) 28 U/L (8-55); AST (SGOT) 24 U/L (5-34); Albumin 4.3 g/dL (3.4-4.8); Alkaline Phosphatase 74 U/L (40-110); Anion Gap 18 mmol/L (10-20); BUN (Urea Nitrogen) 14 mg/dL (9.8-20.1); Bilirubin, Total 0.4 mg/dL (0.2-1.2); Calc. Creatinine Clearance 0 mL/min (70-130); Calcium 9.4 mg/dL (7.8-10.44); Carbon Dioxide 20 mmol/L (23-31); Chloride 98 mmol/L (98-107); Estimated GFR 77; Glucose 84 mg/dL (83-110); Potassium 3.9 mmol/L (3.5-5.1); Protein, Total 7.3 g/dL (5.8-8.1); Sodium 132 mmol/L (136-145)
[2023-02-13 20:18] LABS: Bilirubin Negative (Negative); Blood, Urine Negative (Negative); CAUTI Indications for Culture Alt mental st,lethar; Clarity Clear (Clear); Glucose, Urine (Dipstick) Normal (Negative); Ketone, Urine Negative (Negative); Leukocyte 25 Leu/uL (Negative); Nitrite Negative (Negative); Protein, Urine (Dipstick) Negative (Neg-Trace); RBC/HPF 0-3 HPF (0-3); Specific Gravity, Urine 1.008 (1.002-1.036); Squamous Epithelial 0-3 HPF (0-3); Urobilinogen Normal mg/dL (Less than 2); WBC/HPF 0-3 HPF (0-3)
[2023-02-13 20:19] LABS: Bacteria/HPF 1+ HPF (None Seen)
[2023-02-13 20:20] LABS: Urine Culture Reflex No No
[2023-02-13] MEDS ORDERED: Acetaminophen 500 MG TAB ONE (20:22)
[2023-02-13] MEDS ORDERED: Ondansetron PF 4 MG/2 ML Vial ONE (20:22)
[2023-02-13] MEDS ORDERED: Haloperidol Lactate 5 MG/ML VIAL ONE (22:40)
[2023-02-13] MEDS ORDERED: cefTRIAXone (ROCEPHIN) 1 GM VIAL ONE (22:40)
[2023-02-13 23:36] LABS: Lactic Acid 0.9 mmol/L (0.5-2.2)
[2023-02-13] MEDS ORDERED: Calcium Carbonate 500 MG ChewTAB PO PRN (23:38)
[2023-02-13] MEDS ORDERED: Senokot S 8.6-50 MG TAB PO PRN (23:38)
[2023-02-14 00:25] VITALS: BMI 27.9
[2023-02-14 07:57] LABS: #Eosinphils 0.1 thou/uL (0.0-0.7); #Monocytes 0.8 thou/uL (0.11-0.59); #Neutrophils 4.5 thou/uL (1.40-6.50); %Basophils 0.6 % (0.0-1.0); %Eosinophils 1.7 % (0.0-10.0); %Lymphocytes 20.4 % (21.0-51.0); %Monocytes 11.7 % (0.0-10.0); %Neutrophils 65.3 % (42.0-75.0); Hemoglobin 12.2 g/dL (12.0-16.0); Mean Corpuscular HGB CONC 34.9 g/dL (32.0-36.0); Mean Corpuscular Hemoglobin 33.1 pg (27.0-31.0); Mean Platelet Volume 9.3 fL (7.4-10.4); Platelet Count 206 10x3/uL (130-400); RBC Distribution Width 12.5 % (11.5-14.5); Red Blood Cell (RBC) Count 3.69 mill/uL (4.20-5.40); White Blood Cell (WBC) Count 6.9 10x3/uL (4.8-10.8)
[2023-02-14 08:03] LABS: Mean Corpuscular Volume 94.9 fl (78.0-98.0)
[2023-02-14 08:06] LABS: Anion Gap 13 mmol/L (10-20); BUN (Urea Nitrogen) 13 mg/dL (9.8-20.1); Calc. Creatinine Clearance 80 mL/min (70-130); Calcium 9.5 mg/dL (7.8-10.44); Carbon Dioxide 23 mmol/L (23-31); Chloride 104 mmol/L (98-107); Estimated GFR 77; Glucose 100 mg/dL (83-110); Potassium 3.9 mmol/L (3.5-5.1); Sodium 136 mmol/L (136-145)
[2023-02-14] MEDS: HYDROcodone/Acetaminophen 5/325 mg Tablet PO PRN (08:44)
[2023-02-14] MEDS: busPIRone HCl 5 MG TAB PO SCH ×2 (08:44→20:39)
[2023-02-14] MEDS: Aspirin Chewable 81 MG TAB PO SCH (08:45)
[2023-02-14] MEDS: Metoprolol Tartrate 25 MG TAB PO SCH ×2 (08:45→20:48)
[2023-02-14] MEDS: Amlodipine 5 MG TAB PO SCH (08:45)
[2023-02-14] MEDS: metFORMIN 500 MG TAB PO SCH (08:45)
[2023-02-14] MEDS: PARoxetine 20 MG TAB PO SCH (08:45)
[2023-02-14] MEDS: Timolol 0.5% Ophth Soln 5 ml Bottle EA EYE SCH ×2 (10:20→20:41)
[2023-02-14] MEDS: Brimonidine Tartrate 0.2% Ophth Soln 5 ml Bottle EA EYE SCH ×2 (10:33→20:44)
[2023-02-14] MEDS ORDERED: Fludrocortisone Acetate 0.1 MG TAB PO SCH (18:00)
[2023-02-14] MEDS: Lorazepam 0.5 MG TAB PO PRN (18:02)
[2023-02-14] MEDS: Oxybutynin 5 MG TAB PO SCH (20:40)
[2023-02-14] MEDS: Atorvastatin Calcium 40 MG TAB PO SCH (20:40)
[2023-02-14] MEDS: Latanoprost 0.005% Ophth Soln 2.5 ml Bottle EA EYE SCH (20:46)
[2023-02-15] MEDS: Aspirin Chewable 81 MG TAB PO SCH (09:09)
[2023-02-15] MEDS: metFORMIN 500 MG TAB PO SCH (09:09)
[2023-02-15] MEDS: Metoprolol Tartrate 25 MG TAB PO SCH ×2 (09:09→20:38)
[2023-02-15] MEDS: Fludrocortisone Acetate 0.1 MG TAB PO SCH (09:09)
[2023-02-15] MEDS: PARoxetine 20 MG TAB PO SCH (09:09)
[2023-02-15] MEDS: busPIRone HCl 5 MG TAB PO SCH ×2 (09:10→20:38)
[2023-02-15] MEDS: Amlodipine 5 MG TAB PO SCH (09:10)
[2023-02-15] MEDS: Brimonidine Tartrate 0.2% Ophth Soln 5 ml Bottle EA EYE SCH ×2 (09:11→20:49)
[2023-02-15] MEDS: Timolol 0.5% Ophth Soln 5 ml Bottle EA EYE SCH ×2 (09:12→20:48)
[2023-02-15] MEDS: Lorazepam 0.5 MG TAB PO PRN ×2 (10:35→17:00)
[2023-02-15] MEDS: HYDROcodone/Acetaminophen 5/325 mg Tablet PO PRN (10:44)
[2023-02-15] MEDS: cefTRIAXone\\ROCEPHIN 1 GM in Sodium Chloride 0.9% 100 ML IVPB SCH (16:15)
[2023-02-15] MEDS: Atorvastatin Calcium 40 MG TAB PO SCH (20:37)
[2023-02-15] MEDS: Oxybutynin 5 MG TAB PO SCH (20:38)
[2023-02-15] MEDS: Latanoprost 0.005% Ophth Soln 2.5 ml Bottle EA EYE SCH (20:49)
[2023-02-16] MEDS: Aspirin Chewable 81 MG TAB PO SCH (08:13)
[2023-02-16] MEDS: busPIRone HCl 5 MG TAB PO SCH ×2 (08:13→22:06)
[2023-02-16] MEDS: PARoxetine 20 MG TAB PO SCH (08:14)
[2023-02-16] MEDS: metFORMIN 500 MG TAB PO SCH (08:14)
[2023-02-16] MEDS: Lorazepam 0.5 MG TAB PO PRN ×2 (08:14→15:34)
[2023-02-16] MEDS: Metoprolol Tartrate 25 MG TAB PO SCH ×2 (08:14→22:07)
[2023-02-16] MEDS: Ondansetron ODT 4 MG TAB PO PRN (08:15)
[2023-02-16] MEDS: Brimonidine Tartrate 0.2% Ophth Soln 5 ml Bottle EA EYE SCH ×2 (08:15→22:13)
[2023-02-16] MEDS: Timolol 0.5% Ophth Soln 5 ml Bottle EA EYE SCH ×2 (08:17→22:05)
[2023-02-16] MEDS: Fludrocortisone Acetate 0.1 MG TAB PO SCH (08:51)
[2023-02-16] MEDS: HYDROcodone/Acetaminophen 5/325 mg Tablet PO PRN ×2 (08:51→17:55)
[2023-02-16] MEDS: cefTRIAXone\\ROCEPHIN 1 GM in Sodium Chloride 0.9% 100 ML IVPB SCH (16:40)
[2023-02-16] MEDS: Atorvastatin Calcium 40 MG TAB PO SCH (22:06)
[2023-02-16] MEDS: Oxybutynin 5 MG TAB PO SCH (22:07)
[2023-02-16] MEDS: Latanoprost 0.005% Ophth Soln 2.5 ml Bottle EA EYE SCH (22:09)
[2023-02-17] MEDS: Lorazepam 0.5 MG TAB PO PRN ×2 (00:19→10:12)
[2023-02-17] MEDS: HYDROcodone/Acetaminophen 5/325 mg Tablet PO PRN ×2 (05:36→17:14)
[2023-02-17] MEDS: Timolol 0.5% Ophth Soln 5 ml Bottle EA EYE SCH ×2 (09:54→21:52)
[2023-02-17] MEDS: Aspirin Chewable 81 MG TAB PO SCH (09:55)
[2023-02-17] MEDS: PARoxetine 20 MG TAB PO SCH (09:56)
[2023-02-17] MEDS: metFORMIN 500 MG TAB PO SCH (09:56)
[2023-02-17] MEDS: Metoprolol Tartrate 25 MG TAB PO SCH ×2 (09:56→21:48)
[2023-02-17] MEDS: busPIRone HCl 5 MG TAB PO SCH ×2 (09:56→21:48)
[2023-02-17] MEDS: Brimonidine Tartrate 0.2% Ophth Soln 5 ml Bottle EA EYE SCH ×2 (09:57→21:47)
[2023-02-17] MEDS: Fludrocortisone Acetate 0.1 MG TAB PO SCH (10:00)
[2023-02-17] MEDS: cefTRIAXone\\ROCEPHIN 1 GM in Sodium Chloride 0.9% 100 ML IVPB SCH (17:00)
[2023-02-17] MEDS: Oxybutynin 5 MG TAB PO SCH (21:48)
[2023-02-17] MEDS: Atorvastatin Calcium 40 MG TAB PO SCH (21:48)
[2023-02-17] MEDS: Latanoprost 0.005% Ophth Soln 2.5 ml Bottle EA EYE SCH (21:51)
[2023-02-17] MEDS: Acetaminophen 325 MG TAB PO PRN (21:56)
[2023-02-18] MEDS: Lorazepam 0.5 MG TAB PO PRN ×2 (00:04→15:41)
[2023-02-18] MEDS: HYDROcodone/Acetaminophen 5/325 mg Tablet PO PRN ×2 (05:53→17:40)
[2023-02-18] MEDS: metFORMIN 500 MG TAB PO SCH (08:41)
[2023-02-18] MEDS: busPIRone HCl 5 MG TAB PO SCH ×2 (08:41→21:23)
[2023-02-18] MEDS: PARoxetine 20 MG TAB PO SCH (08:41)
[2023-02-18] MEDS: Aspirin Chewable 81 MG TAB PO SCH (08:41)
[2023-02-18] MEDS: Metoprolol Tartrate 25 MG TAB PO SCH ×2 (08:41→21:23)
[2023-02-18] MEDS: Fludrocortisone Acetate 0.1 MG TAB PO SCH (08:41)
[2023-02-18] MEDS: Timolol 0.5% Ophth Soln 5 ml Bottle EA EYE SCH ×2 (08:42→21:21)
[2023-02-18] MEDS: Brimonidine Tartrate 0.2% Ophth Soln 5 ml Bottle EA EYE SCH ×2 (08:42→21:36)
[2023-02-18] MEDS: cefTRIAXone\\ROCEPHIN 1 GM in Sodium Chloride 0.9% 100 ML IVPB SCH (15:20)
[2023-02-18] MEDS: Atorvastatin Calcium 40 MG TAB PO SCH (21:23)
[2023-02-18] MEDS: Oxybutynin 5 MG TAB PO SCH (21:23)
[2023-02-18] MEDS: Latanoprost 0.005% Ophth Soln 2.5 ml Bottle EA EYE SCH (21:24)
[2023-02-18] MEDS: Acetaminophen 325 MG TAB PO PRN (21:36)
[2023-02-19 01:18] VITALS: TEMP 97.9
[2023-02-19 07:59] LABS: #Eosinphils 0.2 thou/uL (0.0-0.7); #Monocytes 0.7 thou/uL (0.11-0.59); #Neutrophils 3.5 thou/uL (1.40-6.50); %Basophils 0.7 % (0.0-1.0); %Monocytes 10.9 % (0.0-10.0); %Neutrophils 57.1 % (42.0-75.0); Hematocrit 36.2 % (36.0-47.0); Hemoglobin 12.2 g/dL (12.0-16.0); Mean Corpuscular HGB CONC 33.7 g/dL (32.0-36.0); Mean Corpuscular Hemoglobin 32.4 pg (27.0-31.0); Mean Platelet Volume 9.2 fL (7.4-10.4); Platelet Count 220 10x3/uL (130-400); RBC Distribution Width 12.2 % (11.5-14.5); Red Blood Cell (RBC) Count 3.77 mill/uL (4.20-5.40); White Blood Cell (WBC) Count 6.1 10x3/uL (4.8-10.8)
[2023-02-19 08:12] VITALS: BP 132/77
[2023-02-19 08:21] LABS: Anion Gap 13 mmol/L (10-20); BUN (Urea Nitrogen) 18 mg/dL (9.8-20.1); Calc. Creatinine Clearance 71 mL/min (70-130); Calcium 9.2 mg/dL (7.8-10.44); Carbon Dioxide 24 mmol/L (23-31); Chloride 103 mmol/L (98-107); Estimated GFR 67; Glucose 115 mg/dL (83-110); Sodium 136 mmol/L (136-145)
[2023-02-19] MEDS: busPIRone HCl 5 MG TAB PO SCH (08:25)
[2023-02-19] MEDS: metFORMIN 500 MG TAB PO SCH (08:25)
[2023-02-19] MEDS: PARoxetine 20 MG TAB PO SCH (08:25)
[2023-02-19] MEDS: Fludrocortisone Acetate 0.1 MG TAB PO SCH (08:26)
[2023-02-19] MEDS: Metoprolol Tartrate 25 MG TAB PO SCH (08:26)
[2023-02-19] MEDS: Ondansetron ODT 4 MG TAB PO PRN (08:26)
[2023-02-19] MEDS: Aspirin Chewable 81 MG TAB PO SCH (08:26)
[2023-02-19] MEDS: Timolol 0.5% Ophth Soln 5 ml Bottle EA EYE SCH (08:28)
[2023-02-19] MEDS: Brimonidine Tartrate 0.2% Ophth Soln 5 ml Bottle EA EYE SCH (08:29)
[2023-02-19] MEDS: HYDROcodone/Acetaminophen 5/325 mg Tablet PO PRN (08:32)
[2023-02-19] MEDS ORDERED: cefTRIAXone\\ROCEPHIN 1 GM in Sodium Chloride 0.9% 100 ML IVPB SCH (09:00)
== END 2023-02-19 14:34 | DRG 689 ==
LOC: ERS 18:31 → T4-B 23:10 → OBSVTOIN 02-14 17:10
PROVIDERS: ADMIT Student in an Organized Health Care Education/Training Program; ATTEND Internal Medicine
DX: N39.0 Urinary tract infection, site not specified (principal); G93.41 Metabolic encephalopathy; E87.1 Hypo-osmolality and hyponatremia; I50.32 Chronic diastolic (congestive) heart failure; E87.20 Acidosis, unspecified; I95.1 Orthostatic hypotension; I25.10 Atherosclerotic heart disease of native coronary artery without angina pectoris; E11.9 Type 2 diabetes mellitus without complications; F39 Unspecified mood [affective] disorder; E78.00 Pure hypercholesterolemia, unspecified; Z88.8 Allergy status to other drugs, medicaments and biological substances; Z79.82 Long term (current) use of aspirin; Z79.899 Other long term (current) drug therapy; Z79.84 Long term (current) use of oral hypoglycemic drugs; Z95.0 Presence of cardiac pacemaker; I11.0 Hypertensive heart disease with heart failure; Z96.653 Presence of artificial knee joint, bilateral; Z90.710 Acquired absence of both cervix and uterus; Z98.51 Tubal ligation status
CPT/HCPCS: 36415; 36416; 70450; 74177; 80048; 80053; 81001; 83605; 85025; 96365; 96372; 96375; G0378; J0696; J1630; J1650; J2405; J3490; Q0162; Q9967